=== PATIENT | female | born 1990 | race Caucasian/White ===

== ENCOUNTER 2018-10-27 09:12 | Emergency (ER) | payer BC ==
--- NOTE | 2018-10-27 10:19 | EDM.PDOC ---
<Jennifer Law - Last Filed: 10/27/18 11:07> ED HPI GENERAL MEDICAL PROBLEM - General Chief Complaint: Lower Extremity Injury/Pain Stated Complaint: R ANKLE INJURY Time Seen by Provider: 10/27/18 09:46 Source of Information: Reports: Patient History Limitations: Reports: No Limitations - History of Present Illness INITIAL COMMENTS - FREE TEXT/NARRATIVE: Patient is a pleasant 27 year old female who presents to ED with complaints of right ankle pain. Patient states at 7:30pm last night, 10/26, she was walking outside her house and stepped into a hole that she did not see. She states she felt her ankle twist underneath her and believes she heard a pop. She describes the pain as throbbing and is a 6/10 this morning. She states that the pain wraps around the front of the foot to both sides of her ankle. She states that the swelling started quickly after she twisted it last night. She attempted to bear weight on the foot last night but it was very painful so she has been using crutches since. The pain increases with any movement. She states the pain is worse this morning compared to last night. She has tried taking motrin , icing, and elevating the leg and has had some relief in pain with these modalities. She denies numbness and tingling to the right foot, chest pain, and shortness of breath. Onset Date: 10/26/18 Onset Time: 19:30 Duration: Hour(s): Location: Reports: Lower Extremity, Right Quality: Reports: Throbbing Severity: Mild Improves with: Reports: Medication, Rest Worsens with: Reports: Movement Associated Symptoms: Reports: Other (Edema right ankle) Right Ankle Pain Score (Numeric/FACES): 7 - Related Data Allergies Allergy/AdvReac Type Severity Reaction Status Date / Time No Known Allergies Allergy Verified 10/27/18 09:29 Home Meds: Home Meds . 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 Musculoskeletal History: Reports: None Neurological History: Reports: None Psychiatric History: Reports: None Endocrine/Metabolic History: Reports: None Hematologic History: Reports: None Immunologic History: Reports: None Oncologic (Cancer) History: Reports: None Dermatologic History: Reports: None - Infectious Disease History Infectious Disease History: Reports: None - Past Surgical History HEENT Surgical History: Reports: None Social & Family History - Family History Family Medical History: Noncontributory - Tobacco Use Smoking Status *Q: Never Smoker - Caffeine Use Caffeine Use: Reports: Soda - Recreational Drug Use Recreational Drug Use: No Review of Systems - Review of Systems Review Of Systems: See Below Constitutional: Reports: No Symptoms Respiratory: Reports: No Symptoms. Denies: Shortness of Breath Cardiovascular: Reports: No Symptoms. Denies: Chest Pain Musculoskeletal: Reports: Joint Pain (Right ankle), Joint Swelling (Right ankle) Skin: Denies: Bruising, Erythema ED EXAM, GENERAL - Physical Exam Exam: See Below Exam Limited By: No Limitations General Appearance: Alert, No Apparent Distress Respiratory/Chest: No Respiratory Distress, Lungs Clear, Normal Breath Sounds Cardiovascular: Normal Peripheral Pulses, Regular Rate, Rhythm, No Murmur Peripheral Pulses: 3+: Posterior Tibial (L), Posterior Tibial (R), Dorsalis Pedis (L), Dorsalis Pedis (R) Extremities: Normal Capillary Refill, Joint Swelling (Right lateral ankle and dorsal aspect of right foot), Other (Full active and passive ROM. Pain increases with movement, especially with inversion and dorsiflexion) Psychiatric: Normal Affect, Normal Mood Skin Exam: Warm, Dry, Intact, Normal Color Course - Vital Signs Last Recorded V/S: Last Vital Signs Temp 97.8 F 10/27/18 09:32 Pulse 82 10/27/18 09:32 Resp 14 10/27/18 09:32 BP 137/78 10/27/18 09:32 Pulse Ox 97 10/27/18 09:32 Departure - Departure Disposition: Home, Self-Care 01 Clinical Impression: Ankle sprain Qualifiers: Encounter type: initial encounter Involved ligament of ankle: unspecified ligament Laterality: right Qualified Code(s): S93.401A - Sprain of unspecified ligament of right ankle, initial encounter - Discharge Information Instructions: Ankle Sprain Referrals: PCP,None [Primary Care Provider] - Forms: ED Department Discharge, ED Return to Work/School Form Additional Instructions: [place] wrap, crutches, no weight bearing until pain resolving. Ice packs and elevation as needed for swelling, Tylenol or ibuprofen as needed for discomfort. No work recommended for 3 days or until pain resolving to where you can go back and do you work in usual fashion. Follow-up clinic if not much better within 2-3 days as expected. <Srinivas Rubio - Last Filed: 10/28/18 08:07> Course - Re-Assessments/Exams Free Text/Narrative Re-Assessment/Exam: 10/28/18 08:06 initial hx and exam was done by KORY [employer] student. I have also examined patient. I agree with hx and exam as documented. X rays show no fx. Discharge instr. as documented. Departure - Departure Time of Disposition: 10:58 Condition: Fair
--- NOTE | 2018-10-27 11:05 | CR ---
Right ankle: Four views of the right ankle were obtained. Comparison: No previous study. Spur is noted at the attachment of the Achilles tendon to the calcaneus. Mild soft tissue swelling is seen. Ankle mortise is symmetric. No acute fracture, dislocation or other bony abnormality is seen. Impression: 1. No acute bony abnormality is appreciated. 2. Other findings which are believed to be incidental as noted above. Diagnostic code #2
== END 2018-10-27 11:20 | disposition home or self-care (01) ==
LOC: JD.ED 09:12
DX: S93.401A Sprain of unspecified ligament of right ankle, initial encounter (principal); W18.42XA Slipping, tripping and stumbling without falling due to stepping into hole or opening, initial encounter
CPT/HCPCS: 73610-26-RT; 73610-RT; 99282; 99283-25

== ENCOUNTER 2019-05-03 20:15 | Emergency (ER) | payer BC ==
[2019-05-03] MEDS ORDERED: Sodium Chloride 0.9% 1,000 ML IV SCH (21:00)
--- NOTE | 2019-05-03 21:15 | EDM.PDOC ---
ED HPI GENERAL MEDICAL PROBLEM - General Chief Complaint: Abdominal Pain Stated Complaint: upper abdominal pain Time Seen by Provider: 05/03/19 20:34 Source of Information: Reports: Patient, Other (Mother) History Limitations: Reports: No Limitations - History of Present Illness INITIAL COMMENTS - FREE TEXT/NARRATIVE: TRIAGE NOTE -- pt c/o of severe upper abdominal pain after eating pizza tonight. pt still has gallbladder and appendix. last eating time around 6pm. rates pain 4/10. is uncomfortable sitting. denies nausea or vomiting [ End ] As above. Sometime after eating supper she began to have abdominal pain. Apparently there was upper abdominal pain. No nausea or vomiting. No readily identified risk factors. No symptoms of acute illness leading up to this episode. Patient feels well at the present time. No treatment or medication or any other measure employed prior to arrival to moderate symptoms. Upper Abdomen Pain Score (Numeric/FACES): 4 - Related Data Allergies Allergy/AdvReac Type Severity Reaction Status Date / Time No Known Allergies Allergy Verified 05/03/19 20:28 Home Meds: Home Meds . [No Known Home Meds] 10/27/18 [History] Past Medical History HEENT History: Reports: Impaired Vision Cardiovascular History: Reports: None Respiratory History: Reports: None Gastrointestinal History: Reports: None Genitourinary History: Reports: None YAM CURER History: Reports: None Musculoskeletal History: Reports: None Neurological History: Reports: None Psychiatric History: Reports: None Endocrine/Metabolic History: Reports: None Hematologic History: Reports: None Immunologic History: Reports: None Oncologic (Cancer) History: Reports: None Dermatologic History: Reports: None - Infectious Disease History Infectious Disease History: Reports: None - Past Surgical History HEENT Surgical History: Reports: None Social & Family History - Family History Family Medical History: Noncontributory - Tobacco Use Smoking Status *Q: Never Smoker - Caffeine Use Caffeine Use: Reports: Soda - Recreational Drug Use Recreational Drug Use: No ED ROS GENERAL - Review of Systems Review Of Systems: Comprehensive ROS is negative, except as noted in HPI. ED EXAM, GI/ABD - Physical Exam Exam: See Below Exam Limited By: No Limitations General Appearance: Alert, WD/WN, No Apparent Distress Eyes: Bilateral: EOMI Ears: Normal External Exam Nose: Normal Inspection Throat/Mouth: Normal Inspection Head: Atraumatic, Normocephalic Neck: Normal Inspection, Supple Respiratory/Chest: No Respiratory Distress, Lungs Clear, Normal Breath Sounds Cardiovascular: Regular Rate, Rhythm GI/Abdominal Exam: Soft, Tender (Mild epigastric/upper abdominal tenderness). No: Guarding, Rebound Back Exam: Normal Inspection Extremities: Normal Inspection Neurological: Alert, No Motor/Sensory Deficits Psychiatric: Normal Affect Skin Exam: Warm, Dry Course - Vital Signs Last Recorded V/S: Last Vital Signs Temp 37.1 C 05/03/19 20:25 Pulse 105 H 05/03/19 20:25 Resp 18 05/03/19 20:25 BP 145/97 H 05/03/19 20:25 Pulse Ox 97 05/03/19 20:25 - Orders/Labs/Meds Orders: Active Orders 24 hr Category Date Time Status Sodium Chloride 0.9% [Normal Saline] 1,000 ml Med 05/03/19 21:00 Active IV ASDIRECTED Medication Orders Sodium Chloride (Normal Saline) 1,000 mls @ 100 mls/hr IV ASDIRECTED CAROLA Last Admin: 05/03/19 21:05 Dose: 100 mls/hr Labs: Laboratory Tests 05/03/19 05/03/19 05/03/19 Range/Units 21:04 21:04 21:04 WBC 14.19 H (3.98-10.04) K/mm3 RBC 4.75 (3.98-5.22) M/mm3 Hgb 13.5 (11.2-15.7) gm/dl Hct 39.6 (34.1-44.9) % MCV 83.4 (79.4-94.8) fl MCH 28.4 (25.6-32.2) pg MCHC 34.1 (32.2-35.5) g/dl RDW Std Deviation 39.1 (36.4-46.3) fL Plt Count 283 (182-369) K/mm3 MPV 10.3 (9.4-12.3) fl Neut % (Auto) 77.9 H (34.0-71.1) % Lymph % (Auto) 13.7 L (19.3-51.7) % Reynolds % (Auto) 7.5 (4.7-12.5) % Eos % (Auto) 0.6 L (0.7-5.8) Baso % (Auto) 0.1 (0.1-1.2) % Neut # (Auto) 11.03 H (1.56-6.13) K/mm3 Lymph # (Auto) 1.95 (1.18-3.74) K/mm3 Reynolds # (Auto) 1.07 H (0.24-0.36) K/mm3 Eos # (Auto) 0.09 (0.04-0.36) K/mm3 Baso # (Auto) 0.02 (0.01-0.08) K/mm3 Manual Slide Review Normal smear Sodium 139 (136-145) mEq/L Potassium 3.5 (3.5-5.1) mEq/L Chloride 102 (98-107) mEq/L Carbon Dioxide 24 (21-32) mEq/L Anion Gap 16.5 H (5-15) BUN 12 (7-18) mg/dL Creatinine 0.9 (0.55-1.02) mg/dL Est Cr Clr Drug Dosing 75.61 mL/min Estimated GFR (MDRD) > 60 (>60) mL/min BUN/Creatinine Ratio 13.3 L (14-18) Glucose 155 H (74-106) mg/dL Calcium 8.8 (8.5-10.1) mg/dL Total Bilirubin 0.7 (0.2-1.0) mg/dL AST 107 H (15-37) U/L ALT 87 H (14-59) U/L Alkaline Phosphatase 129 H (46-116) U/L Total Protein 7.7 (6.4-8.2) g/dl Albumin 3.8 (3.4-5.0) g/dl Globulin 3.9 gm/dL Albumin/Globulin Ratio 1.0 (1-2) Lipase 133 (73-393) U/L HCG, Qual Negative (NEGATIVE) Urine Color (Yellow) Urine Appearance (Clear) Urine pH (5.0-8.0) Ur Specific [place] (1.005-1.030) Urine Protein (Negative) Urine Glucose (UA) (Negative) Urine Ketones (Negative) Urine Occult Blood (Negative) Urine Nitrite (Negative) Urine Bilirubin (Negative) Urine Urobilinogen (0.2-1.0) Ur Leukocyte Esterase (Negative) Urine RBC (0-5) /hpf Urine WBC (0-5) /hpf Ur Squamous Epith Cells (0-5) /hpf Urine Bacteria (FEW) /hpf Urine Mucus (FEW) /hpf 05/03/19 Range/Units 21:31 WBC (3.98-10.04) K/mm3 RBC (3.98-5.22) M/mm3 Hgb (11.2-15.7) gm/dl Hct (34.1-44.9) % MCV (79.4-94.8) fl MCH (25.6-32.2) pg MCHC (32.2-35.5) g/dl RDW Std Deviation (36.4-46.3) fL Plt Count (182-369) K/mm3 MPV (9.4-12.3) fl Neut % (Auto) (34.0-71.1) % Lymph % (Auto) (19.3-51.7) % Reynolds % (Auto) (4.7-12.5) % Eos % (Auto) (0.7-5.8) Baso % (Auto) (0.1-1.2) % Neut # (Auto) (1.56-6.13) K/mm3 Lymph # (Auto) (1.18-3.74) K/mm3 Reynolds # (Auto) (0.24-0.36) K/mm3 Eos # (Auto) (0.04-0.36) K/mm3 Baso # (Auto) (0.01-0.08) K/mm3 Manual Slide Review Sodium (136-145) mEq/L Potassium (3.5-5.1) mEq/L Chloride (98-107) mEq/L Carbon Dioxide (21-32) mEq/L Anion Gap (5-15) BUN (7-18) mg/dL Creatinine (0.55-1.02) mg/dL Est Cr Clr Drug Dosing mL/min Estimated GFR (MDRD) (>60) mL/min BUN/Creatinine Ratio (14-18) Glucose (74-106) mg/dL Calcium (8.5-10.1) mg/dL Total Bilirubin (0.2-1.0) mg/dL AST (15-37) U/L ALT (14-59) U/L Alkaline Phosphatase (46-116) U/L Total Protein (6.4-8.2) g/dl Albumin (3.4-5.0) g/dl Globulin gm/dL Albumin/Globulin Ratio (1-2) Lipase (73-393) U/L HCG, Qual (NEGATIVE) Urine Color Dark yellow (Yellow) Urine Appearance Slt cloudy H (Clear) Urine pH 6.0 (5.0-8.0) Ur Specific [place] > or = 1.030 (1.005-1.030) Urine Protein Negative (Negative) Urine Glucose (UA) Negative (Negative) Urine Ketones Negative (Negative) Urine Occult Blood 3+ H (Negative) Urine Nitrite Negative (Negative) Urine Bilirubin Negative (Negative) Urine Urobilinogen 0.2 (0.2-1.0) Ur Leukocyte Esterase Negative (Negative) Urine RBC 10-20 H (0-5) /hpf Urine WBC 0-5 (0-5) /hpf Ur Squamous Epith Cells 5-10 H (0-5) /hpf Urine Bacteria Moderate H (FEW) /hpf Urine Mucus Moderate H (FEW) /hpf Meds: Medications Generic Name Dose Route Start Last Admin Trade Name Freq PRN Reason Stop Dose Admin Sodium Chloride 1,000 mls @ 100 mls/hr 05/03/19 21:00 05/03/19 21:05 Normal Saline IV 100 mls/hr ASDIRECTED CAROLA Administration Discontinued Medications Generic Name Dose Route Start Last Admin Trade Name Freq PRN Reason Stop Dose Admin Pantoprazole Sodium 80 mg 05/03/19 22:42 Protonix Iv IVPUSH 05/03/19 22:43 BOLUS ONE - Re-Assessments/Exams Free Text/Narrative Re-Assessment/Exam: 05/03/19 22:44 The various evaluations have been reviewed and discussed with patient and her mother. The physical exam is fairly unremarkable. There is slight epigastric tenderness and this is the site of the pain and a dose of Protonix will be given prior to departure. She is received IV fluids. The only abnormal of any concern is the white count about 14,000. Lungs are clear. There is been no dysuria. Blood in urinalysis related to patient's menses. Patient feels well and is happy to go home. We will let her go home and take clear liquids only until early afternoon tomorrow. In the meantime if there is any vomiting, fever , abdominal pain, return to ER right away. Patient and mother were given to understand that a CT scan at this point is not warranted. The radiation administered is not justified in light of the absence of physical findings or lab values that would indicate it. In any event she is to be observed closely at home and return for any problem at all. Departure - Departure Time of Disposition: 22:47 Disposition: Home, Self-Care 01 Condition: Good Clinical Impression: Epigastric pain - Discharge Information Referrals: Mary Kate Lewis MD [Physician] - Forms: ED Department Discharge Additional Instructions: You have had an episode of abdominal pain which is now resolved. It is safe to go home. Recommend clear liquids only until early afternoon tomorrow. Return to ER immediately for vomiting, fever, jimmie abdominal pain or any other concern. The only lab finding of any concern is a slightly elevated white blood count. It is not high enough to require additional testing at this point. However close follow-up is recommended either by your personal physician or come back to the ER if any trouble getting local care. You received a dose of the medication which turns off stomach acid. It is called Protonix. With the pain you are experiencing there is a question that it may be something of peptic ulcer pain. If this persist you need a referral to GI. Your primary can arrange that. It is noted that the surgeons at this hospital also do GI evaluations for ulcer disease. Sepsis Event Note - Evaluation Sepsis Screening Result: No Definite Risk - Focused Exam Vital Signs: Vital Signs Temp Pulse Resp BP Pulse Ox 05/03/19 20:25 37.1 C 105 H 18 145/97 H 97 Date Exam was Performed: 05/03/19 Time Exam was Performed: 22:44 - My Orders Last 24 Hours: My Active Orders 05/03/19 21:00 Sodium Chloride 0.9% [Normal Saline] 1,000 ml IV ASDIRECTED - Assessment/Plan Last 24 Hours: My Active Orders 05/03/19 21:00 Sodium Chloride 0.9% [Normal Saline] 1,000 ml IV ASDIRECTED
[2019-05-03] MEDS ORDERED: Pantoprazole 40 MG Vial IVPUSH ONE (22:42)
== END 2019-05-03 23:10 | disposition home or self-care (01) ==
LOC: JD.ED 20:15
DX: R10.13 Epigastric pain (principal)
CPT/HCPCS: 36415; 80053; 81001; 83690; 84703; 85025; 96361; 96374; 99284; C9113; J7030

== ENCOUNTER 2022-01-16 03:51 | Emergency (ER) | payer BC ==
[2022-01-16] MEDS ORDERED: Ondansetron 4 MG/2 ML SDV IVPUSH ONE (04:27)
[2022-01-16] MEDS ORDERED: HYDROmorphone 1 MG/ML Syringe IVPUSH STA (04:27)
[2022-01-16] MEDS ORDERED: Sodium Chloride 0.9% 1,000 ML IV SCH (04:30)
[2022-01-16] MEDS ORDERED: Iopamidol 612 MG/ML 100 ML Bottle IVPUSH ONE (04:48)
[2022-01-16] MEDS ORDERED: Sodium Chloride 0.9% 10 ML Syringe FLUSH ONE (04:48)
== END 2022-01-16 06:18 | disposition home or self-care (01) ==
LOC: JD.ED 03:51
DX: N83.292 Other ovarian cyst, left side (principal); R73.9 Hyperglycemia, unspecified; Z86.16 Personal history of COVID-19
CPT/HCPCS: 36415; 74177; 80053; 85007; 85027; 96361; 96374; 96375; 99284; J1170; J2405; J3490; J7030; Q9967

== ENCOUNTER 2023-04-05 19:20 | Emergency (ER) | payer BC | END 2023-04-05 20:42 | disposition home or self-care (01) | LOC: JD.ED 19:20 | DX: S93.491A Sprain of other ligament of right ankle, initial encounter (principal); E66.9 Obesity, unspecified; Z68.43 Body mass index [BMI] 50.0-59.9, adult; W18.42XA Slipping, tripping and stumbling without falling due to stepping into hole or opening, initial encounter | CPT/HCPCS: 73610-26-RT; 73610-RT; 99282; 99283 ==